=== PATIENT | female | born 1960 | race Caucasian/White ===

== ENCOUNTER 2017-06-17 06:54 | Day surgery (SDC) | payer BC ==
[2017-06-17] MEDS: NS 1,000 ML IV (07:14)
[2017-06-17] MEDS ORDERED: fentaNYL 100 MCG/2 ML INJECTION (J3010) As Ordered (07:25)
[2017-06-17] MEDS ORDERED: PROPOFOL 200 MG/20 ML VIAL As Ordered ×2 (07:25→08:10)
[2017-06-17] MEDS ORDERED: LIDOCAINE 2% INJ 100 MG/5 ML SDV (FOR ANES.) As Ordered (07:25)
[2017-06-17] MEDS ORDERED: ONDANSETRON 4MG/2ML VIAL (J2405) As Ordered (07:36)
[2017-06-17] MEDS ORDERED: METOCLOPRAMIDE INJ 10MG/2ML VIAL (J2765) As Ordered (07:56)
== END 2017-06-17 08:50 | disposition home or self-care (01) ==
LOC: M OPP 06:54
DX: Z12.11 Encounter for screening for malignant neoplasm of colon (principal); K50.10 Crohn's disease of large intestine without complications; K64.0 First degree hemorrhoids; K63.3 Ulcer of intestine; R12 Heartburn; K22.8 Other specified diseases of esophagus; K44.9 Diaphragmatic hernia without obstruction or gangrene; K31.89 Other diseases of stomach and duodenum; Z98.0 Intestinal bypass and anastomosis status; Z87.19 Personal history of other diseases of the digestive system; I10 Essential (primary) hypertension; E78.5 Hyperlipidemia, unspecified; E11.9 Type 2 diabetes mellitus without complications; E03.9 Hypothyroidism, unspecified; K21.9 Gastro-esophageal reflux disease without esophagitis; M19.90 Unspecified osteoarthritis, unspecified site; M85.80 Other specified disorders of bone density and structure, unspecified site; Z87.442 Personal history of urinary calculi; Z88.1 Allergy status to other antibiotic agents; Z88.5 Allergy status to narcotic agent; Z79.82 Long term (current) use of aspirin; Z79.899 Other long term (current) drug therapy; Z79.4 Long term (current) use of insulin
CPT/HCPCS: 45331

== ENCOUNTER 2019-07-07 05:55 | Day surgery (SDC) | payer BC ==
[~2019-07-07] VITALS: Ht 170.2 cm; Wt 106.6 kg
[~2019-07-07 05:55] MED LIST: ASPI81TA26 PO; CALCTAB7 PO; CYAN1000VL IM; DYMI137S; FENO145T7 PO; FENO54TA2; FURO80TA2 PO; GLYB5TA PO; HUMA50IN4 SQ; HUMI40KI2 SQ; LEVO175T2 PO; LOPE1CAP5 PO; LOSA100T50 PO; MESA50SU; NORT25CA2 PO; OMEP40CA97 PO; POTA10808; PROBCAP14 PO; TRES1INJ SC; URSO300C3 PO; VERA240C PO; VITA50005 PO; VITATAB11 PO; VITATAB54 PO; VSL#CAP PO
[2019-07-07] MEDS ORDERED: LR 1,000 ML IV ONE (06:00)
[2019-07-07] MEDS ORDERED: ISOVUE-300 61% 50ML VIAL (Q9967) As Ordered ONE (07:12)
[2019-07-07] MEDS ORDERED: LIDOCAINE 2% INJ 100 MG/5 ML SDV (FOR ANES.) As Ordered ONE (07:19)
[2019-07-07] MEDS ORDERED: ROCURONIUM BROMIDE 50 MG/5 ML VIAL As Ordered ONE (07:19)
[2019-07-07] MEDS ORDERED: propofoL 200 MG/20 ML VIAL As Ordered ONE (07:19)
[2019-07-07] MEDS ORDERED: fentaNYL 100 MCG/2 ML INJECTION (J3010) As Ordered ONE (07:20)
[2019-07-07] MEDS ORDERED: MIDAZOLAM INJ 2 MG/2 ML VIAL (J2250) As Ordered ONE (07:20)
[2019-07-07] MEDS ORDERED: GLUCAGON FOR INJ 1 MG VIAL (J1610) As Ordered ONE (08:18)
[2019-07-07] MEDS ORDERED: METOCLOPRAMIDE INJ 10MG/2ML VIAL (J2765) As Ordered ONE (08:25)
[2019-07-07] MEDS ORDERED: ONDANSETRON 4MG/2ML VIAL (J2405) As Ordered ONE (08:25)
[2019-07-07] MEDS ORDERED: diphenhydrAMINE INJ 50MG/ML VIAL (J1200) As Ordered ONE (08:25)
[2019-07-07] MEDS ORDERED: KETOROLAC 60 MG/2 ML VIAL (J1885) As Ordered ONE (08:25)
[2019-07-07] MEDS ORDERED: SUGAMMADEX SODIUM 500 MG/5 ML VIAL (BRIDION) As Ordered ONE (08:26)
--- NOTE | 2019-07-07 08:41 | ROOR ---
Patient Name: Venecia Addison Procedure Date: 07/07/2019 7:37 AM Date of : 1960 Age: 59 Room: [facility] Gender: Female Note Status: Finalized Procedure: ERCP + Papillotomy + Balloon Sweep Indications: Bile duct stone(s), Evaluation and possible treatment of bile duct stone(s) Providers: Stanislaw Brennan MD Referring MD: 1. No Referring Physician 1. No Referring Physician, Admin. Requesting Provider: Medicines: General Anesthesia Complications: No immediate complications. Procedure: Pre-Anesthesia Assessment: - The heart rate, respiratory rate, oxygen saturations, blood pressure, adequacy of pulmonary ventilation, and response to care were monitored throughout the procedure. The Duodenoscope was introduced through the mouth, and advanced to the duodenum and used to inject contrast into the bile duct. The ERCP was accomplished without difficulty. The patient tolerated the procedure well. Findings: The major papilla was normal. The bile duct was deeply cannulated with the short-nosed traction sphincterotome. Contrast was injected. I personally interpreted the bile duct images. Ductal flow of contrast was adequate. Image quality was suboptimal. Contrast extended to the entire biliary tree. Opacification of the lower third of the main bile duct was successful. The lower third of the main bile duct contained one stone. The entire biliary tree was mildly dilated. A short 0.035 inch Soft Jagwire was passed into the biliary tree. Biliary sphincterotomy was made with a monofilament traction (standard) sphincterotome using ERBE electrocautery. There was no post-sphincterotomy bleeding. The biliary tree was swept with a 12 mm balloon starting at the bifurcation. Sludge was swept from the duct. All stones were removed. Impression: - The major papilla appeared normal. - The entire biliary tree was mildly dilated. - Choledocholithiasis was found. Complete removal was accomplished by biliary sphincterotomy and balloon extraction. - A biliary sphincterotomy was performed. - The biliary tree was swept. - The examination was otherwise normal. Recommendation: - Avoid aspirin and nonsteroidal anti-inflammatory medicines for 2 weeks. - Resume previous diet. - Continue present medications. - Watch for pancreatitis, bleeding, perforation, and cholangitis. - The findings and recommendations were discussed with the patient's family. Stanislaw Brennan MD Stanislaw Brennan MD 07/07/2019 8:41:03 AM Electronically signed by Stanislaw Brennan MD Number of Addenda: 0 Note Initiated On: 07/07/2019 7:37 AM Estimated Blood Loss: Estimated blood loss: none.
[2019-07-07] MEDS ORDERED: PHENYLephrine HCL 500 MCG/5 ML (100MCG/ML) SYRINGE (J2370) As Ordered ONE (08:58)
[2019-07-07] MEDS ORDERED: ONDANSETRON 4MG/2ML VIAL (J2405) IV PRN (09:00)
[2019-07-07] MEDS ORDERED: fentaNYL 100 MCG/2 ML INJECTION (J3010) IV PRN (09:00)
[2019-07-07] MEDS ORDERED: LR 1,000 ML IV SCH (09:00)
[2019-07-07] MEDS ORDERED: PERCOCET 5MG/325MG TAB PO PRN (09:00)
--- NOTE | 2019-07-07 09:21 | REP ---
Clinical: Biliary pathology. Technique: Intraoperative fluoroscopic imaging with portable C-arm technique. Findings: Multiple images from ERCP examination demonstrate mildly prominent common bile duct. No cystic duct identified and adjacent surgical clips are consistent with prior cholecystectomy. Total fluoroscopic time 1 minute 44 seconds. Impression: 1. Evidence of prior cholecystectomy with presumed compensatory dilatation to the visualized common bile duct. 2. Please refer to GI ERCP report for complete details. Electronically Signed by Ky Hall MD 07/07/2019 09:14 A
[2019-07-07 11:10] VITALS: BP 115/50
== END 2019-07-07 11:21 | disposition home or self-care (01) ==
LOC: M SDC 05:55
PROVIDERS: ATTEND Internal Medicine Gastroenterology
DX: K80.50 Calculus of bile duct without cholangitis or cholecystitis without obstruction (principal); K83.8 Other specified diseases of biliary tract; K50.80 Crohn's disease of both small and large intestine without complications; K74.60 Unspecified cirrhosis of liver; Z87.442 Personal history of urinary calculi; Z90.49 Acquired absence of other specified parts of digestive tract; M54.9 Dorsalgia, unspecified; K21.9 Gastro-esophageal reflux disease without esophagitis; K29.90 Gastroduodenitis, unspecified, without bleeding; E11.9 Type 2 diabetes mellitus without complications; E03.9 Hypothyroidism, unspecified; G43.909 Migraine, unspecified, not intractable, without status migrainosus; I10 Essential (primary) hypertension; E78.00 Pure hypercholesterolemia, unspecified; Z79.899 Other long term (current) drug therapy; Z79.4 Long term (current) use of insulin; Z79.82 Long term (current) use of aspirin; Z88.5 Allergy status to narcotic agent; Z88.1 Allergy status to other antibiotic agents
CPT/HCPCS: 43262; 43264; 74330; J1200; J1610; J1885; J2250; J2370; J2405; J2765; J3010; Q9967

== ENCOUNTER 2021-12-04 06:49 | Day surgery (SDC) | payer BC ==
[~2021-12-04] VITALS: Ht 172.7 cm; Wt 102.9 kg
[~2021-12-04 06:49] MED LIST changes: +ALLO300T2 PO; +ATOR1TAB21 PO; +CALC-211 PO; -CALCTAB7 PO; +ERGO500029 PO; +FURO40TA2 PO; -GLYB5TA PO; +GLYB5TAB6 PO; +IRON65TA2 PO; +LEVO200T4 PO; +LOSA100T45 PO; -LOSA100T50 PO; +NITR-67 PO; +NS 1,000 ML IV ONE; +OMEP40CA4 PO; -OMEP40CA97 PO; +POTA10808 PO; +VERA300C6 PO; -VITA50005 PO
[2021-12-04] MEDS ORDERED: LIDOCAINE 2% MDV 20ML VIAL As Ordered ONE (07:51)
[2021-12-04] MEDS ORDERED: fentaNYL 100 MCG/2 ML INJECTION As Ordered ONE (07:51)
[2021-12-04] MEDS ORDERED: propofoL 200 MG/20 ML VIAL As Ordered ONE (07:51)
[2021-12-04 08:30] VITALS: BP 135/72
== END 2021-12-04 08:32 | disposition home or self-care (01) ==
LOC: M OPP 06:49
PROVIDERS: ATTEND Internal Medicine Gastroenterology
DX: K50.80 Crohn's disease of both small and large intestine without complications (principal); Z98.0 Intestinal bypass and anastomosis status; K63.5 Polyp of colon; K31.89 Other diseases of stomach and duodenum; R12 Heartburn; Z79.02 Long term (current) use of antithrombotics/antiplatelets; Z79.4 Long term (current) use of insulin; Z79.82 Long term (current) use of aspirin; Z88.1 Allergy status to other antibiotic agents; Z88.5 Allergy status to narcotic agent; Z87.442 Personal history of urinary calculi; Z94.9 Transplanted organ and tissue status, unspecified
CPT/HCPCS: 43239; 45380; 88305; J3010

== ENCOUNTER → 2022-04-14 | Outpatient (REF) | payer BC ==
[~2022-04-14] MED LIST changes: -NS 1,000 ML IV ONE
[2022-04-14 16:40] LABS: BASO # 0.1 10^3/uL (0.0-0.2); BASO % 0.7 % (0.0-1.0); EOS # 0.1 10^3/uL (0.0-0.5); EOS % 1.5 % (0.0-3.0); HEMATOCRIT 38.4 % (36.0-47.0); HEMOGLOBIN 12.5 g/dl (12.0-15.5); LYMPH # 2.5 10^3/uL (1.5-5.0); LYMPH % 35.1 % (24.0-44.0); MEAN CORPUSCULAR HEMOGLOBIN 32.2 pg (27.0-33.0); MEAN CORPUSCULAR HGB CONC 32.6 g/dl (32.0-36.5); MONO # 0.5 10^3/uL (0.0-0.8); MONO % 6.4 % (2.0-8.0); PLATELET COUNT, AUTOMATED 253 10^3/uL (150-450); RED BLOOD COUNT 3.88 10^6/uL (4.00-5.40); WHITE BLOOD COUNT 7.2 10^3/uL (4.0-10.0)
[2022-04-14 16:42] LABS: APPEARANCE, URINE MANUAL CLEAR (CLEAR); BILIRUBIN, URINE MANUAL NEGATIVE (NEGATIVE); BLOOD URINE MANUAL NEGATIVE (NEGATIVE); COLOR, URINE MANUAL LT YELLOW (YELLOW); GLUCOSE, URINE (UA) MANUAL 4+(1000 MG/DL) mg/dL (NEGATIVE); KETONE, URINE MANUAL NEGATIVE (NEGATIVE); LEUKOCYTE ESTERASE, URINE MAN NEGATIVE (NEGATIVE); PROTEIN, URINE MANUAL NEGATIVE (NEGATIVE); UROBILINOGEN, URINE MANUAL NORMAL (NORMAL)
[2022-04-14 16:43] LABS: NITRITE, URINE MANUAL NEGATIVE (NEGATIVE)
[2022-04-14 17:10] LABS: ERYTHROCYTE SEDIMENTATION RATE 35 mm/hr (0-30)
[2022-04-14 17:46] LABS: C REACTIVE PROTEIN QUANTITATIV 0.4 MG/DL (<1.0); COMPLEMENT C3 153.6 MG/DL (90.0-170.0)
[2022-04-14 17:52] LABS: CREATININE,RANDOM URINE 83.3 MG/DL; TOTAL PROTEIN,RANDOM URINE 6.3 MG/DL (0.0-14.0)
== END ==
LOC: M SFHCRHEU 15:29
PROVIDERS: ATTEND Internal Medicine
DX: R76.8 Other specified abnormal immunological findings in serum (principal); M25.50 Pain in unspecified joint; K50.818 Crohn's disease of both small and large intestine with other complication

== ENCOUNTER → 2022-04-14 | Outpatient (CLI) | payer BC | LOC: M PLAIMG 16:09 | PROVIDERS: ATTEND Internal Medicine | DX: M70.60 Trochanteric bursitis, unspecified hip (principal); R76.8 Other specified abnormal immunological findings in serum; M25.50 Pain in unspecified joint; K50.818 Crohn's disease of both small and large intestine with other complication; M17.0 Bilateral primary osteoarthritis of knee ==